=== PATIENT | female | born 1945 | race Two or more races ===

== ENCOUNTER 2018-05-29 11:17 | Emergency (ER) | payer OTHER ==
[~2018-05-29] VITALS: Ht 167.6 cm; Wt 108.9 kg
[~2018-05-29 11:17] MED LIST: ALDACTONE25 MG; ATENOLOL100 MG PO; BENZONATATE200 M1 PO; CARTIA XT240 MG; CARTIA XT240 MG PO; COUMADIN2 MG PO; COUMADIN5 MG PO; DIGOXIN250 MCG PO; DIOVAN HCT 320/1 TA1 PO; GLIMEPIRIDE2 MG; GLIMEPIRIDE2 MG PO; GLUCOPHAGE XR500 MG; HYDRALAZINE HCL10 MG PO; HYDRALAZINE HCL50 MG PO; HYZAAR 100-251 UDTAB PO; JENTADUETO 2.51 EAC2; LANOXIN0.25 MG; LANOXIN125 MCG PO; LIPITOR20 MG PO; LOSARTAN-HCTZ1 EAC2 PO; Lantus 1000 U/10 ML SUBCUTANEO; MEDROLPACK PO; PRAVASTATIN SOD20 MG; PRAVASTATIN SOD20 MG PO; Prednisone PO; Pulmicort 0.5 MG/2 ML AMPUL IH; SPIRONOLACTONE25 MG PO; SYMBICORT 16010.2 GM IH; TUSSI PRES-B L120 M1; VENTOLIN HFA18 GM IH; XOPENEX0.63 MG/3 IH
[2018-05-29] MEDS ORDERED: METFORMIN HCL500 MG (11:56)
[2018-05-29] MEDS ORDERED: LOSARTAN-HCTZ1 EAC1 (11:56)
[2018-05-29] MEDS ORDERED: HYDRALAZINE HC100 MG (11:57)
[2018-05-29] MEDS ORDERED: DIGOXIN0.125 MG/2 (11:57)
[2018-05-29] MEDS ORDERED: PRAVASTATIN SOD20 MG (11:57)
[2018-05-29] MEDS ORDERED: DILTIAZEM 24HR240 MG (11:57)
[2018-05-29] MEDS ORDERED: GLIMEPIRIDE2 MG (11:58)
[2018-05-29] MEDS ORDERED: ALDACTONE25 MG (11:58)
[2018-05-29] MEDS ORDERED: COUMADIN3 MG (11:58)
== END 2018-05-29 19:34 | disposition home or self-care (01) ==
LOC: ER 11:17
DX: J22 Unspecified acute lower respiratory infection (principal); J06.9 Acute upper respiratory infection, unspecified; R06.02 Shortness of breath; J11.1 Influenza due to unidentified influenza virus with other respiratory manifestations

== ENCOUNTER 2019-09-21 15:15 | Inpatient (IN) | payer OTHER ==
[~2019-09-21] VITALS: Ht 167.6 cm; Wt 108.0 kg
[~2019-09-21 15:15] MED LIST changes: +COUMADIN3 MG; +DIGOXIN0.125 MG/2; +DILTIAZEM 24HR240 MG; +HYDRALAZINE HC100 MG; +LOSARTAN-HCTZ1 EAC1; +METFORMIN HCL500 MG
[2019-09-21] MEDS ORDERED: GLIMEPIRIDE2 MG (15:31)
[2019-09-30] MEDS ORDERED: DILTIAZEM ER300 M2 PO (10:22)
[2019-09-30] MEDS ORDERED: LOSARTAN POTAS100 MG PO (10:22)
[2019-09-30] MEDS ORDERED: INTESTINEX680 M1 PO (10:25)
[2019-09-30] MEDS ORDERED: PRADAXA150 MG PO (10:27)
[2019-09-30] MEDS ORDERED: LASIX40 MG PO (10:28)
[2019-09-30] MEDS ORDERED: MEDROLPACK PO (11:29)
[2019-09-30] MEDS ORDERED: PEPCID AC20 MG PO (11:29)
== END 2019-09-30 11:26 | disposition home or self-care (01) | DRG 190 ==
LOC: ER 15:15 → MEDJ 09-22 02:15
PROVIDERS: ADMIT Internal Medicine
PROC: B246ZZZ Ultrasonography of Right and Left Heart (ICD-10-PCS; principal; 2019-09-22)
PROC: 4A033R1 Measurement of Arterial Saturation, Peripheral, Percutaneous Approach (ICD-10-PCS; 2019-09-22)
PROC: 3E0F7GC Introduction of Other Therapeutic Substance into Respiratory Tract, Via Natural or Artificial Opening (ICD-10-PCS; 2019-09-22)
PROC: 4A12X4Z Monitoring of Cardiac Electrical Activity, External Approach (ICD-10-PCS; 2019-09-22)
PROC: BB24ZZZ Computerized Tomography (CT Scan) of Bilateral Lungs (ICD-10-PCS; 2019-09-23)
DX: J44.1 Chronic obstructive pulmonary disease with (acute) exacerbation (principal); I50.43 Acute on chronic combined systolic (congestive) and diastolic (congestive) heart failure; J45.41 Moderate persistent asthma with (acute) exacerbation; J90 Pleural effusion, not elsewhere classified; N17.8 Other acute kidney failure; I13.0 Hypertensive heart and chronic kidney disease with heart failure and stage 1 through stage 4 chronic kidney disease, or unspecified chronic kidney disease; I11.0 Hypertensive heart disease with heart failure; I08.3 Combined rheumatic disorders of mitral, aortic and tricuspid valves; G47.33 Obstructive sleep apnea (adult) (pediatric); E66.01 Morbid (severe) obesity due to excess calories; N18.2 Chronic kidney disease, stage 2 (mild); E11.22 Type 2 diabetes mellitus with diabetic chronic kidney disease; E11.65 Type 2 diabetes mellitus with hyperglycemia; R09.02 Hypoxemia; I48.0 Paroxysmal atrial fibrillation; Z79.01 Long term (current) use of anticoagulants; Z79.4 Long term (current) use of insulin

== ENCOUNTER 2019-10-29 17:35 | Emergency (ER) | payer OTHER ==
[~2019-10-29] VITALS: Ht 165.1 cm; Wt 111.1 kg
[~2019-10-29 17:35] MED LIST changes: +DILTIAZEM ER300 M2 PO; +INTESTINEX680 M1 PO; +LASIX40 MG PO; +LOSARTAN POTAS100 MG PO; +PEPCID AC20 MG PO; +PRADAXA150 MG PO
== END 2019-10-29 22:54 | disposition home or self-care (01) ==
LOC: ER 17:35
DX: J45.998 Other asthma (principal)

== ENCOUNTER 2023-08-09 12:54 | Inpatient (IN) | payer OTHER ==
[~2023-08-09] VITALS: Ht 167.6 cm; Wt 103.4 kg
[2023-08-09] MEDS ORDERED: ELIQUIS5 MG PO (13:41)
[2023-08-09] MEDS ORDERED: HYDRALAZINE HC100 MG PO (13:42)
[2023-08-09] MEDS ORDERED: ALLER-TEC10 MG (13:43)
[2023-08-09] MEDS ORDERED: CHLORTHALIDONE25 MG PO (13:44)
[2023-08-09 15:59] LABS: HEMATOCRIT 36.8 % (36.0-45.00); HEMOGLOBIN 12.2 g/dL (12.0-15.00); MEAN CELL VOLUME 92.5 fL (80.00-100.00); MEAN CORPUSCULAR HEMOGLOBIN 30.6 pg (27.00-32.0); MEAN CORPUSCULAR HGB CONC 33.1 g/dl (32.0-36.0); PLATELET COUNT 268 K/uL (150-450); RED BLOOD COUNT 3.97 M/uL (4.00-6.00); RED CELL DISTRIBUTION WIDTH 14.3 % (11.5-14.5)
[2023-08-09 16:09] LABS: CALCIUM 8.3 mg/dL (8.5-10.1); CREATININE SERUM 0.83 mg/dL (0.55-1.02); GFR 66.14; POTASSIUM 4.17 mEq/L (3.5-5.1)
[2023-08-09 16:45] LABS: ABG pCO2 49.3 mmHg (35-45); BASE EXCESS -0.4 mmol/l; SaO2 86.8 %; Tco2 27.6 mmol/l
[2023-08-09 16:53] LABS: ABG PO2 56.2 mmHg (80-100); allen test SATISFACTORY; o2 21 %; puncture site RADIAL LEFT
[2023-08-10 00:48] LABS: INR 1.13; PARTIAL THROMBOPLASTIN TIME 29.9 SECONDS (22.0-34.0); PROTHROMBIN TIME 11.8 SECONDS (9.0-11.5)
[2023-08-10 02:15] LABS: URINE APPEARANCE Cloudy; URINE BILIRRUBIN Negative (NEGATIVE); URINE BLOOD Negative; URINE COLOR Yellow; URINE EPITHELIAL CELLS 9.4 uL (0.0-38.8); URINE GLUCOSE Negative (NEGATIVE); URINE LEUKOCYTE Small; URINE NITRATE Negative; URINE PROTEIN Trace (NEGATIVE); URINE RBC 4.7 uL (0.0-20.8)
[2023-08-10 02:17] LABS: URINE BACTERIA > 9821.5 uL (0.0-1933)
[2023-08-11 07:06] LABS: HEMATOCRIT 37.9 % (36.0-45.00); HEMOGLOBIN 12.4 g/dL (12.0-15.00); MEAN CELL VOLUME 93.3 fL (80.00-100.00); MEAN CORPUSCULAR HEMOGLOBIN 30.6 pg (27.00-32.0); MEAN CORPUSCULAR HGB CONC 32.8 g/dl (32.0-36.0); PLATELET COUNT 305 K/uL (150-450); RED BLOOD COUNT 4.07 M/uL (4.00-6.00); RED CELL DISTRIBUTION WIDTH 14.6 % (11.5-14.5)
[2023-08-11 07:13] LABS: ALBUMIN 2.1 gm/dL (3.4-5.0); BILIRUBIN TOTAL 0.17 mg/dL (0.3-1.2); CREATININE SERUM 1.03 mg/dL (0.55-1.02); GFR 51.56; GLOBULINA 3.2 G/DL (2.4-3.5); MAGNESIUM 1.6 mg/dL (1.8-2.4); PHOSPHOROUS 3.7 mg/dL (2.5-4.9); POTASSIUM 5.12 mEq/L (3.5-5.1); TOTAL PROTEIN 5.3 gm/dL (6.4-8.2)
[2023-08-11 07:19] LABS: C-REACTIVE PROTEIN 8.26 MG/DL (0.00-0.29)
[2023-08-11 23:35] LABS: URINE APPEARANCE Clear; URINE BACTERIA 23.9 uL (0.0-1933); URINE BILIRRUBIN Negative (NEGATIVE); URINE BLOOD Negative; URINE COLOR Yellow; URINE EPITHELIAL CELLS 13.7 uL (0.0-38.8); URINE GLUCOSE Negative (NEGATIVE); URINE LEUKOCYTE Trace; URINE NITRATE Negative; URINE PROTEIN Negative (NEGATIVE); URINE RBC 2.4 uL (0.0-20.8); URINE UROBILINOGEN 0.2 E.U./dl; URINE WBC 34.7 uL (0.0-23.2)
[2023-08-12 07:22] LABS: ALBUMIN 2.2 gm/dL (3.4-5.0); BILIRUBIN TOTAL 0.18 mg/dL (0.3-1.2); CALCIUM 8.2 mg/dL (8.5-10.1); CREATININE SERUM 0.84 mg/dL (0.55-1.02); GFR 65.24; GLOBULINA 3.1 G/DL (2.4-3.5); MAGNESIUM 1.7 mg/dL (1.8-2.4); POTASSIUM 4.84 mEq/L (3.5-5.1); TOTAL PROTEIN 5.3 gm/dL (6.4-8.2)
[2023-08-12 07:24] LABS: HEMATOCRIT 39.3 % (36.0-45.00); HEMOGLOBIN 12.3 g/dL (12.0-15.00); MEAN CELL VOLUME 94.6 fL (80.00-100.00); MEAN CORPUSCULAR HEMOGLOBIN 29.6 pg (27.00-32.0); MEAN CORPUSCULAR HGB CONC 31.3 g/dl (32.0-36.0); PLATELET COUNT 309 K/uL (150-450); RED BLOOD COUNT 4.15 M/uL (4.00-6.00); RED CELL DISTRIBUTION WIDTH 14.3 % (11.5-14.5)
[2023-08-12 11:09] LABS: PLATELET ESTIMATE NORMAL (NORMAL)
[2023-08-12 19:25] LABS: ABG PH 7.309 (7.35-7.45)
[2023-08-12 19:26] LABS: BASE EXCESS 4.7 mmol/l; BICARBONATE 33.5 mmol/l (23-25); SaO2 82.9 %; Tco2 35.6 mmol/l; allen test SATISFACTORY; o2 36 %; puncture site RADIAL RIGHT
[2023-08-12 19:27] LABS: ABG PO2 51.6 mmHg (80-100); ABG pCO2 68.2 mmHg (35-45)
[2023-08-13 01:53] LABS: ABG PH 7.311 (7.35-7.45)
[2023-08-13 01:54] LABS: ABG pCO2 67.5 mmHg (35-45); BASE EXCESS 4.7 mmol/l; BICARBONATE 33.3 mmol/l (23-25); Tco2 35.4 mmol/l; allen test SATISFACTORY; o2 36 %; puncture site RADIAL RIGHT
[2023-08-14 08:47] LABS: HEMATOCRIT 40.3 % (36.0-45.00); HEMOGLOBIN 12.6 g/dL (12.0-15.00); MEAN CORPUSCULAR HEMOGLOBIN 29.4 pg (27.00-32.0); MEAN CORPUSCULAR HGB CONC 31.2 g/dl (32.0-36.0); PLATELET COUNT 324 K/uL (150-450); RED BLOOD COUNT 4.29 M/uL (4.00-6.00); RED CELL DISTRIBUTION WIDTH 14.2 % (11.5-14.5)
[2023-08-14 09:15] LABS: CALCIUM 8.8 mg/dL (8.5-10.1); CREATININE SERUM 0.93 mg/dL (0.55-1.02); GFR 58.01; MAGNESIUM 2.1 mg/dL (1.8-2.4); POTASSIUM 4.34 mEq/L (3.5-5.1)
[2023-08-14 09:21] LABS: ABG PH 7.395 (7.35-7.45); ABG PO2 66.1 mmHg (80-100); ABG pCO2 55.4 mmHg (35-45); BASE EXCESS 6.5 mmol/l; BICARBONATE 33.2 mmol/l (23-25); Tco2 34.9 mmol/l
[2023-08-14 09:23] LABS: allen test SATISFACTORY; o2 32 %; puncture site RADIAL LEFT
[2023-08-16 07:02] LABS: ABG PH 7.398 (7.35-7.45); ABG PO2 77.8 mmHg (80-100); BASE EXCESS 8.5 mmol/l; BICARBONATE 35.6 mmol/l (23-25); SaO2 95.6 %; Tco2 37.4 mmol/l
[2023-08-16 07:10] LABS: HEMATOCRIT 37.6 % (36.0-45.00); HEMOGLOBIN 12.2 g/dL (12.0-15.00); MEAN CELL VOLUME 92.6 fL (80.00-100.00); MEAN CORPUSCULAR HGB CONC 32.4 g/dl (32.0-36.0); PLATELET COUNT 296 K/uL (150-450); RED BLOOD COUNT 4.07 M/uL (4.00-6.00); RED CELL DISTRIBUTION WIDTH 14.3 % (11.5-14.5)
[2023-08-16 07:21] LABS: ALBUMIN 2.2 gm/dL (3.4-5.0); BILIRUBIN TOTAL 0.25 mg/dL (0.3-1.2); CALCIUM 8.8 mg/dL (8.5-10.1); CREATININE SERUM 1.13 mg/dL (0.55-1.02); GFR 46.33; GLOBULINA 3.1 G/DL (2.4-3.5); MAGNESIUM 1.7 mg/dL (1.8-2.4); PHOSPHOROUS 3.9 mg/dL (2.5-4.9); POTASSIUM 4.04 mEq/L (3.5-5.1); TOTAL PROTEIN 5.3 gm/dL (6.4-8.2)
[2023-08-16 08:10] LABS: allen test SATISFACTORY; o2 28 %; puncture site RADIAL LEFT
[2023-08-17 11:38] LABS: ABG pCO2 54.7 mmHg (35-45); BICARBONATE 36.3 mmol/l (23-25); SaO2 91.1 %
[2023-08-17 11:51] LABS: ABG PO2 56.8 mmHg (80-100)
[2023-08-17 11:52] LABS: allen test SATISFACTORY; o2 21 %; puncture site RADIAL RIGHT
[2023-08-18 13:40] LABS: HEMATOCRIT 40.3 % (36.0-45.00); HEMOGLOBIN 13.3 g/dL (12.0-15.00); MEAN CELL VOLUME 91.3 fL (80.00-100.00); MEAN CORPUSCULAR HGB CONC 32.9 g/dl (32.0-36.0); PLATELET COUNT 225 K/uL (150-450); RED BLOOD COUNT 4.41 M/uL (4.00-6.00); RED CELL DISTRIBUTION WIDTH 14.1 % (11.5-14.5)
[2023-08-18 14:42] LABS: ALBUMIN 2.3 gm/dL (3.4-5.0); BILIRUBIN TOTAL 0.41 mg/dL (0.3-1.2); CALCIUM 8.6 mg/dL (8.5-10.1); CREATININE SERUM 0.78 mg/dL (0.55-1.02); GFR 71.06; GLOBULINA 2.8 G/DL (2.4-3.5); MAGNESIUM 1.5 mg/dL (1.8-2.4); PHOSPHOROUS 3.2 mg/dL (2.5-4.9); POTASSIUM 3.97 mEq/L (3.5-5.1); TOTAL PROTEIN 5.1 gm/dL (6.4-8.2)
[2023-08-18 14:46] LABS: C-REACTIVE PROTEIN 0.87 MG/DL (0.00-0.29)
[2023-08-20 08:07] LABS: HEMATOCRIT 36.9 % (36.0-45.00); HEMOGLOBIN 11.8 g/dL (12.0-15.00); MEAN CELL VOLUME 92.3 fL (80.00-100.00); MEAN CORPUSCULAR HEMOGLOBIN 29.6 pg (27.00-32.0); MEAN CORPUSCULAR HGB CONC 32.1 g/dl (32.0-36.0); PLATELET COUNT 167 K/uL (150-450); RED CELL DISTRIBUTION WIDTH 13.6 % (11.5-14.5)
[2023-08-20 08:53] LABS: BILIRUBIN TOTAL 0.55 mg/dL (0.3-1.2); CREATININE SERUM 0.81 mg/dL (0.55-1.02); GFR 68.03; GLOBULINA 2.5 G/DL (2.4-3.5); PHOSPHOROUS 3.1 mg/dL (2.5-4.9); POTASSIUM 4.03 mEq/L (3.5-5.1); TOTAL PROTEIN 4.5 gm/dL (6.4-8.2)
[2023-08-20 09:53] LABS: MAGNESIUM 1.4 mg/dL (1.8-2.4)
[2023-08-20] MEDS ORDERED: LASIX20 MG PO (16:45)
== END 2023-08-20 17:55 | disposition home or self-care (01) | DRG 193 ==
LOC: ER 12:54 → SURH 20:19
PROVIDERS: General Practice; Internal Medicine; Internal Medicine Infectious Disease; ADMIT Internal Medicine; ATTEND Internal Medicine
PROC: BB24ZZZ Computerized Tomography (CT Scan) of Bilateral Lungs (ICD-10-PCS; principal; 2023-08-09)
PROC: B246ZZZ Ultrasonography of Right and Left Heart (ICD-10-PCS; 2023-08-10)
PROC: 3E0F7GC Introduction of Other Therapeutic Substance into Respiratory Tract, Via Natural or Artificial Opening (ICD-10-PCS; 2023-08-10)
PROC: 4A12X4Z Monitoring of Cardiac Electrical Activity, External Approach (ICD-10-PCS; 2023-08-13)
PROC: 5A09457 Assistance with Respiratory Ventilation, 24-96 Consecutive Hours, Continuous Positive Airway Pressure (ICD-10-PCS; 2023-08-17)
DX: J10.01 Influenza due to other identified influenza virus with the same other identified influenza virus pneumonia (principal); I50.33 Acute on chronic diastolic (congestive) heart failure; J90 Pleural effusion, not elsewhere classified; I13.0 Hypertensive heart and chronic kidney disease with heart failure and stage 1 through stage 4 chronic kidney disease, or unspecified chronic kidney disease; J44.1 Chronic obstructive pulmonary disease with (acute) exacerbation; N17.8 Other acute kidney failure; J45.41 Moderate persistent asthma with (acute) exacerbation; R09.02 Hypoxemia; D72.828 Other elevated white blood cell count; E11.22 Type 2 diabetes mellitus with diabetic chronic kidney disease; Z79.4 Long term (current) use of insulin; E78.49 Other hyperlipidemia; G47.33 Obstructive sleep apnea (adult) (pediatric); I48.0 Paroxysmal atrial fibrillation; E66.01 Morbid (severe) obesity due to excess calories